=== PATIENT | female | born 1995 | race Hispanic/Latino ===

== ENCOUNTER 2019-02-16 14:29 | Emergency (ER) | payer BC ==
[~2019-02-16] VITALS: Ht 154.9 cm; Wt 72.6 kg
[2019-02-16] MEDS ORDERED: SODIUM CHLORIDE 0.9% 1000ML 1,000 ML IV STA (14:46)
[2019-02-16] MEDS ORDERED: DIPHENHYDRAMINE HCL INJ 50 MG/ML VIAL IV ONE (15:00)
[2019-02-16] MEDS ORDERED: PROMETHAZINE 25MG/ NS 50ML (IV) IV ONE (15:00)
[2019-02-16] MEDS ORDERED: FAMOTIDINE 20 MG/2 ML VIAL IV ONE ×2 (15:00→15:28)
[2019-02-16] MEDS ORDERED: DEXAMETHASONE SOD PHOS 10 MG/1 ML VIAL IV ONE (15:00)
[2019-02-16] MEDS ORDERED: KETOROLAC TROMETHAMINE 30 MG/ML VIAL IV ONE (15:00)
[2019-02-16] MEDS ORDERED: DIPHENHYDRAMINE HCL INJ 50 MG/ML VIAL ONE (15:27)
[2019-02-16] MEDS ORDERED: KETOROLAC TROMETHAMINE 30 MG/ML VIAL ONE (15:27)
[2019-02-16] MEDS ORDERED: DEXAMETHASONE SOD PHOS 10 MG/1 ML VIAL ONE (15:27)
[2019-02-16] MEDS ORDERED: PROMETHAZINE HCL (IM) 25 MG/ML VIAL ONE (15:28)
[2019-02-16] MEDS ORDERED: SODIUM CHLORIDE 0.9% 1000ML 1,000 ML ONE (15:28)
--- OUTSIDE RECORDS SUMMARY | 2019-02-17 14:07 | XMS REPORT ---
Author Author [facility] Address Unknown Phone Unavailable Care Team Providers Care Compensator Name Role Phone Unavailable Unavailable Problems This patient has no known problems. Allergies, Adverse Reactions, Alerts This patient has no known allergies or adverse reactions. Medications This patient has no known medications. Encounters Start Date/Time End Date/Time Encounter Type Admission Type Attending [facility] Care Department Encounter ID 2018-12-15 17:06:00 2018-12-15 17:06:00 Emergency E [id number] 2018-12-07 12:28:00 2018-12-07 12:28:00 Outpatient [facility] [id number]
== END 2019-02-16 17:31 | disposition home or self-care (01) ==
LOC: FSED 14:29
DX: G43.909 Migraine, unspecified, not intractable, without status migrainosus (principal)
CPT/HCPCS: 99283; J1100; J1200; J1885; J2550; J7030

== ENCOUNTER 2024-03-01 17:44 | Emergency (ER) | payer BC, OTHER ==
[~2024-03-01] VITALS: Ht 154.9 cm; Wt 72.6 kg
[2024-03-01] MEDS ORDERED: AMOX TR-K CLV1 EAC2 PO (19:28)
[2024-03-01] MEDS ORDERED: ULTRAM 50MG50 MG PO (19:30)
[2024-03-01 20:00] VITALS: PULSE 84; RESP 18; TEMP 98.6; O2SAT 98
[2024-03-01] MEDS: KETOROLAC TROMETHAMINE 60 MG/2 ML VIAL IM STA (20:21)
== END 2024-03-01 20:00 | disposition home or self-care (01) ==
LOC: FSED 17:51
DX: R50.9 Fever, unspecified (principal); H66.91 Otitis media, unspecified, right ear; G90.59 Complex regional pain syndrome I of other specified site; Z86.61 Personal history of infections of the central nervous system
CPT/HCPCS: 70450; 99283; J1885